=== PATIENT | male | born 1965 | race Caucasian/White ===

== ENCOUNTER 2019-06-15 14:03 | Emergency (ER) | payer BC ==
[2019-06-15] MEDS ORDERED: NORMAL SALINE 1000 ML 1,000 ML IV ONE (16:16)
--- NOTE | 2019-06-15 16:20 | ER Document Report ---
ED Medical Screen (RME) - General TRAVEL OUTSIDE OF THE [place] IN LAST 30 DAYS: No <ELIAZAR [place] - Last Filed: 06/15/19 16:14> <STORMY العراقي - Last Filed: 06/15/19 18:46> - General Chief Complaint: Fever Stated Complaint: WEAKNESS Time Seen by Provider: 06/15/19 16:04 Primary Care Provider: [facility] [Provider Group] - Follow up in 3-5 days Notes: Patient is a 53-year-old male who presents emergency department with a chief complaint of weakness, nausea, and a fever. He states that he started to feel his symptoms 6 days ago and started with nausea and the next day he ended up having a fever of 103 at home. He also did have some chills. Patient states that he vomited only 2 times since then. He continues to have a headache. States he has had some diarrhea. Exam: Firm abdomen. I have greeted and performed a rapid initial assessment of this patient. A comprehensive ED assessment and evaluation of the patient, analysis of test results and completion of medical decision making process will be conducted by an additional ED providers. (CLEMELIAZAR Keene) - Related Data Allergies/Adverse Reactions: No Known Allergies Allergy (Verified 06/15/19 14:10) Past Medical History Renal/ Medical History: Denies: Hx Peritoneal Dialysis <ELIAZAR [place] - Last Filed: 06/15/19 16:14> - Vital signs Vitals: Temp Pulse Resp BP Pulse Ox 97.5 F 108 H 18 118/82 93 06/15/19 14:18 06/15/19 14:18 06/15/19 14:18 06/15/19 14:18 06/15/19 14:18 Course - Laboratory Result Diagrams: 06/15/19 16:20 06/15/19 16:20 <STORMY العراقي - Last Filed: 06/15/19 18:46> - Vital Signs Vital signs: Temp Pulse Resp BP Pulse Ox 97.5 F 108 H 18 118/82 93 06/15/19 14:18 06/15/19 14:18 06/15/19 14:18 06/15/19 14:18 06/15/19 14:18 - Laboratory Laboratory results interpreted by me: 06/15/19 06/15/19 06/15/19 16:20 16:20 16:20 RDW 14.5 H Seg Neutrophils % 79.7 H Lymphocytes % 11.1 L Potassium 3.3 L Chloride 95 L Glucose 126 H Calcium 8.3 L Direct Bilirubin 0.5 H AST 183 H ALT 136 H Creatine Kinase 242 H Urine Protein 100 H Urine Blood MODERATE H Urine Urobilinogen 2.0 H - EKG Interpretation by Me Additional EKG results interpreted by me: 06/15/19 18:45 Interpreted by myself 1738: Normal sinus rhythm, rate 83, normal axis, no ectopy, no STEMI (STORMY العراقي) Doctor's Discharge <ELIAZAR [place] Jassi - Last Filed: 06/15/19 16:14> <STORMY العراقي - Last Filed: 06/15/19 18:46> - Discharge Clinical Impression: Elevated LFTs, Fatigue Condition: Stable Disposition: HOME, SELF-CARE Instructions: Liver Function Abnormality ([facility]), Viral Syndrome ([facility]) Additional Instructions: Please return to the emergency department if you have any worsening, or concern of your symptoms. Please return to the emergency department if you develop chest pain, difficulty breathing, severe abdominal pain, or ongoing vomiting. Please follow-up with your primary care physician in 2-3 days and any other recommended physicians. If prescribed, take all medications as directed. If you have any questions or concerns do not hesitate to return the emergency department for evaluation. Take Tylenol and ibuprofen at home as needed for fever and pain Avoid excessive heat exposure while feeling sick Increase the amount of water you are drinking daily Your liver function studies were elevated today and need to be rechecked in the primary care physician office in 1 week Referrals: [facility] [Provider Group] - Follow up in 3-5 days
[2019-06-15 16:47] LABS: ABSOLUTE BASOPHILS # (AUTO) 0.1 10^3/uL (0.0-0.2); ABSOLUTE EOSINOPHILS # (AUTO) 0.1 10^3/uL (0.0-0.6); ABSOLUTE LYMPHOCYTES (AUTO) 1.1 10^3/uL (0.5-4.7); ABSOLUTE MONOCYTES (AUTO) 0.7 10^3/uL (0.1-1.4); ABSOLUTE NEUT (AUTO) 7.7 10^3/uL (1.7-8.2); BASOPHILS % (AUTO) 0.9 % (0-2); EOSINOPHILS % (AUTO) 0.9 % (0-6); HEMATOCRIT 41.2 % (37.9-51.0); HEMOGLOBIN 14.1 g/dL (13.5-17.0); LYMPHOCYTES % (AUTO) 11.1 % (13-45); MEAN CORPUSCULAR HGB CONC 34.2 g/dL (32.0-36.0); MEAN CORPUSCULAR VOLUME 85 fl (80-97); MONOCYTES % (AUTO) 7.4 % (3-13); PLATELET COUNT 403 10^3/uL (150-450); RED BLOOD COUNT 4.85 10^6/uL (4.35-5.55); RED CELL DISTRIBUTION WIDTH 14.5 % (11.5-14.0); SEGMENTED NEUTROPHILS % (AUTO) 79.7 % (42-78); TOTAL CELLS COUNTED % (AUTO) 100 %; WHITE BLOOD COUNT 9.6 10^3/uL (4.0-10.5)
[2019-06-15 16:50] LABS: APPEARANCE,URINE CLEAR; BILIRUBIN,URINE NEGATIVE (NEGATIVE); COLOR,URINE AMBER; GLUCOSE, URINE NEGATIVE (NEGATIVE); KETONES,URINE NEGATIVE (NEGATIVE); LEUKOCYTE ESTERASE,URINE NEGATIVE (NEGATIVE); NITRITE,URINE NEGATIVE (NEGATIVE); PROTEIN,URINE 100 mg/dL (NEGATIVE); URINE SPECIFIC GRAVITY 1.028
[2019-06-15 17:02] LABS: ALANINE AMINOTRANSFERASE 136 U/L (21-72); ALBUMIN 3.6 g/dL (3.5-5.0); ALKALINE PHOSPHATASE 121 U/L (38-126); ANION GAP 16 (5-19); ASPARTATE AMINO TRANSFERASE 183 U/L (17-59); BILIRUBIN,DIRECT 0.5 mg/dL (0.0-0.4); BLOOD UREA NITROGEN 19 mg/dL (7-20); CALCIUM 8.3 mg/dL (8.4-10.2); CARBON DIOXIDE 27 mmol/L (22-30); CHLORIDE 95 mmol/L (98-107); CREATINE KINASE 242 U/L (55-170); GLUCOSE 126 mg/dL (75-110); POTASSIUM 3.3 mmol/L (3.6-5.0); TOTAL PROTEIN 7.5 g/dL (6.3-8.2)
[2019-06-15 17:14] LABS: CREATINE KINASE MB 0.41 ng/mL (<4.55)
[2019-06-15 17:15] LABS: TROPONIN I < 0.012 ng/mL
[2019-06-15] MEDS ORDERED: KETOROLAC TROMETHAMINE INJ/PF 30 MG/1 ML SDV IV ONE (18:40)
--- NOTE | 2019-06-15 18:43 | ER Document Report ---
ED General - General Chief Complaint: Fever Stated Complaint: WEAKNESS Time Seen by Provider: 06/15/19 16:04 Primary Care Provider: SAMI CALVERT [NO LOCAL MD] - Follow up as needed TRAVEL OUTSIDE OF THE [place] IN LAST 30 DAYS: No - HPI Notes: Patient is a 53-year-old male that presents to the emergency department for chief complaint of fatigue. Patient reports that he has not been feeling well for the last 7 or 8 days. He states about 7 days ago he had a fever of 103 at home. Patient has not taken his temperature since. He states he was taking Tylenol for the first 2 days he was not feeling well but stopped taking it because it would make him break out in a sweat. He has nonspecific complaints of intermittent headaches, malaise and fatigue. He states he threw up once a few days ago. He states he has had 2 episodes of diarrhea in the last week but the remainder of his bowel movements have been normal. He currently is not having a headache, abdominal pain, chest pain, shortness of breath, cough or congestion. He states he feels better after receiving the liter of fluid in triage. She denies any symptoms today but states his family wanted him to get checked out. Past Medical History: Negative Past Surgical History: Negative Social History: Quit smoking 2 years ago. Denies drug and alcohol use Family History: Reviewed and noncontributory for presenting illness Allergies: Reviewed, see documented allergy list. REVIEW OF SYSTEMS: CONSTITUTIONAL : fever chills diaphoresis No recent illness EENT: No vision changes No congestion No sore throat CARDIOVASCULAR: No chest pain No palpitations RESPIRATORY: No shortness of breath No cough No difficulty breathing GASTROINTESTINAL: No abdominal pain No nausea vomiting diarrhea GENITOURINARY: No dysuria No hematuria No difficulty urinating MUSCULOSKELETAL: No back pain No leg pain No arm pain SKIN: No rashes No lesions LYMPHATIC: No swollen, enlarged glands. NEUROLOGICAL: No lightheadedness headache No weakness No paresthesias PSYCHIATRIC: No anxiety No depression PHYSICAL EXAMINATION: Vital signs reviewed, nursing noted reviewed. GENERAL: Well-appearing, well-nourished and in no acute distress. HEAD: Atraumatic, normocephalic. EYES: Eyes appear normal, extraocular movements intact, sclera anicteric, conjunctiva are normal. ENT: nares patent, oropharynx clear without exudates. Moist mucous membranes. NECK: Normal range of motion, supple without lymphadenopathy LUNGS: Breath sounds clear to auscultation bilaterally and equal. No wheezes rales or rhonchi. HEART: Regular rate and rhythm without murmurs ABDOMEN: Soft, nontender, normoactive bowel sounds. No rebound, guarding, or rigidity. No masses appreciated. EXTREMITIES: Nontender, good range of motion, no pitting or edema. NEUROLOGICAL: No focal neurological deficits. Moves all extremities spontaneously Motor and sensory grossly intact on exam. PSYCH: Normal mood, normal affect. SKIN: Warm, Dry, normal turgor, no rashes or lesions noted on exposed skin - Related Data Allergies/Adverse Reactions: No Known Allergies Allergy (Verified 06/15/19 14:10) Past Medical History - Social History Smoking Status: Former Smoker Family History: Reviewed & Not Pertinent Patient has suicidal ideation: No Patient has homicidal ideation: No Renal/ Medical History: Denies: Hx Peritoneal Dialysis Physical Exam - Vital signs Vitals: Temp Pulse Resp BP Pulse Ox 97.5 F 108 H 18 118/82 93 06/15/19 14:18 06/15/19 14:18 06/15/19 14:18 06/15/19 14:18 06/15/19 14:18 Course - Re-evaluation Re-evalutation: 06/15/19 18:43 Vitals reviewed. Nursing notes reviewed. Patient is well-appearing and in no acute distress. He reports improvement of symptoms after 1 L of fluid. He has not had any vomiting or diarrhea in the emergency room. He has no complaints of upper respiratory illness. He has been afebrile since the beginning of his symptoms started about a week ago. Patient currently is not experiencing a headache and has no focal deficits to suggest meningitis. Patient reports he would like to be discharged home. I encouraged him to get in touch with a primary care provider for follow-up. His lab work showed some mild elevation in LFTs which she was counseled on. Patient will have LFTs rechecked in the outpatient setting in the next week. He will return for new or worsening sympt oms. Laboratory 06/15/19 06/15/19 06/15/19 16:20 16:20 16:20 WBC 9.6 RBC 4.85 Hgb 14.1 Hct 41.2 MCV 85 MCH 29.0 MCHC 34.2 RDW 14.5 H Plt Count 403 Seg Neutrophils % 79.7 H Lymphocytes % 11.1 L Monocytes % 7.4 Eosinophils % 0.9 Basophils % 0.9 Absolute Neutrophils 7.7 Absolute Lymphocytes 1.1 Absolute Monocytes 0.7 Absolute Eosinophils 0.1 Absolute Basophils 0.1 Sodium 137.8 Potassium 3.3 L Chloride 95 L Carbon Dioxide 27 Anion Gap 16 BUN 19 Creatinine 1.19 Est GFR ( Amer) > 60 Est GFR (Non-Af Amer) > 60 Glucose 126 H Calcium 8.3 L Total Bilirubin 1.0 Direct Bilirubin 0.5 H Neonat Total Bilirubin Not Reportable Neonat Direct Bilirubin Not Reportable Neonat Indirect Bili Not Reportable AST 183 H ALT 136 H Alkaline Phosphatase 121 Creatine Kinase 242 H CK-MB (CK-2) 0.41 Troponin I < 0.012 Total Protein 7.5 Albumin 3.6 Urine Color Urine Appearance Urine pH Ur Specific [place] Urine Protein Urine Glucose (UA) Urine Ketones Urine Blood Urine Nitrite Urine Bilirubin Urine Urobilinogen Ur Leukocyte Esterase Urine WBC (Auto) Urine RBC (Auto) Squamous Epi Cells Auto Urine Mucus (Auto) Urine Ascorbic Acid 06/15/19 16:20 WBC RBC Hgb Hct MCV MCH MCHC RDW Plt Count Seg Neutrophils % Lymphocytes % Monocytes % Eosinophils % Basophils % Absolute Neutrophils Absolute Lymphocytes Absolute Monocytes Absolute Eosinophils Absolute Basophils Sodium Potassium Chloride Carbon Dioxide Anion Gap BUN Creatinine Est GFR ( Amer) Est GFR (Non-Af Amer) Glucose Calcium Total Bilirubin Direct Bilirubin Neonat Total Bilirubin Neonat Direct Bilirubin Neonat Indirect Bili AST ALT Alkaline Phosphatase Creatine Kinase CK-MB (CK-2) Troponin I Total Protein Albumin Urine Color SIMONE Urine Appearance CLEAR Urine pH 6.0 Ur Specific [place] 1.028 Urine Protein 100 H Urine Glucose (UA) NEGATIVE Urine Ketones NEGATIVE Urine Blood MODERATE H Urine Nitrite NEGATIVE Urine Bilirubin NEGATIVE Urine Urobilinogen 2.0 H Ur Leukocyte Esterase NEGATIVE Urine WBC (Auto) 3 Urine RBC (Auto) 5 Squamous Epi Cells Auto <1 Urine Mucus (Auto) FEW Urine Ascorbic Acid NEGATIVE - Vital Signs Vital signs: Temp Pulse Resp BP Pulse Ox 97.5 F 108 H 18 118/82 93 06/15/19 14:18 06/15/19 14:18 06/15/19 14:18 06/15/19 14:18 06/15/19 14:18 - Laboratory Result Diagrams: 06/15/19 16:20 06/15/19 16:20 Laboratory results interpreted by me: 06/15/19 06/15/19 06/15/19 16:20 16:20 16:20 RDW 14.5 H Seg Neutrophils % 79.7 H Lymphocytes % 11.1 L Potassium 3.3 L Chloride 95 L Glucose 126 H Calcium 8.3 L Direct Bilirubin 0.5 H AST 183 H ALT 136 H Creatine Kinase 242 H Urine Protein 100 H Urine Blood MODERATE H Urine Urobilinogen 2.0 H Discharge - Discharge Clinical Impression: Elevated LFTs Fatigue Qualifiers: Fatigue type: unspecified Qualified Code(s): R53.83 - Other fatigue Condition: Stable Disposition: HOME, SELF-CARE Instructions: Viral Syndrome ([facility]), Liver Function Abnormality ([facility]) Additional Instructions: Please return to the emergency department if you have any worsening, or concern of your symptoms. Please return to the emergency department if you develop chest pain, difficulty breathing, severe abdominal pain, or ongoing vomiting. Please follow-up with your primary care physician in 2-3 days and any other recommended physicians. If prescribed, take all medications as directed. If you have any questions or concerns do not hesitate to return the emergency department for evaluation. Take Tylenol and ibuprofen at home as needed for fever and pain Avoid excessive heat exposure while feeling sick Increase the amount of water you are drinking daily Your liver function studies were elevated today and need to be rechecked in the primary care physician office in 1 week Referrals: [facility] [Provider Group] - Follow up in 3-5 days
[2019-06-15 19:09] VITALS: BP 123/77
--- NOTE | 2019-06-15 21:34 | EKG REPORT ---
SEVERITY:- BORDERLINE ECG - SINUS RHYTHM BORDERLINE PROLONGED QT INTERVAL : Confirmed by: Katherin Lowe 15-Jun-2019 21:32:02
== END 2019-06-15 19:14 | disposition home or self-care (01) ==
LOC: ER 14:03
DX: R79.89 Other specified abnormal findings of blood chemistry (principal); R53.83 Other fatigue; R50.9 Fever, unspecified; R53.1 Weakness
CPT/HCPCS: 93005; 99283; 96361; 96374; 36415; 82553; 82550; 83690; 85025; 80053; 81001; 84484; 93010; J1885; J7030